=== PATIENT | male | born 1975 | race Caucasian/White ===

== ENCOUNTER 2016-09-06 02:27 | Emergency (ER) | payer BC ==
[2016-09-06] MEDS ORDERED: SODIUM CHLORIDE 0.9% 1000ML 1,000 ML ONE (02:48)
--- NOTE | 2016-09-06 02:50 | ED.PDOC ---
History of Present Illness - General Chief Complaint: Eye Problems Stated Complaint: left eye pain Time Seen by Provider: 09/06/16 02:48 Source: patient, RN notes reviewed, Vital Signs reviewed Exam Limitations: no limitations - History of Present Illness Initial Comments: Patient comes in with feeling like something is in his left eye. Reports his eye was fine when he went to bed last night but he woke up with severe pain and feeling like something is in there. 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 Timing/Duration: abrupt EENT Location: eye (L) Prearrival Treatment: no prearrival treatment Improving Factors: nothing Worsening Factors: nothing Associated Symptoms: denies symptoms Allergies/Adverse Reactions: Allergies Sulfa Antibiotics Allergy (Verified 09/06/16 02:40) Home Medications: Ambulatory Orders Acetamin W/Cod #3 Tab [Tylenol w/CODEINE #3] 1 - 2 ea PO Q4HR PRN #15 tab Review of Systems - Review of Systems Constitutional: States: no symptoms reported EENTM: States: see HPI, eye pain - left, tearing - left, other - +photophobia. Denies: blurred vision, double vision Respiratory: States: no symptoms reported Cardiology: States: no symptoms reported Gastrointestinal/Abdominal: States: no symptoms reported Neurological: States: no symptoms reported All other Systems: No Change from Baseline Past Medical History (General) - Patient Medical History Hx Seizures: No Hx Stroke: No Hx Dementia: No Hx Asthma: No Hx of COPD: No Hx Cardiac Disorders: No Hx Congestive Heart Failure: No Hx Pacemaker: No Hx Hypertension: No Hx Thyroid Disease: No Hx Diabetes: No Hx Gastroesophageal Reflux: No Hx Renal Disease: No Hx Cancer: No Hx of HIV: No Hx Hepatitis C: No Hx MRSA: No Surgical History: other - Vaccination History Hx Tetanus, Diphtheria Vaccination: - unknown Hx Influenza Vaccination: No Immunizations Up to Date: No - Social History Hx Tobacco Use: Yes Hx Chewing Tobacco Use: Yes Hx Alcohol Use: No Hx Substance Use: No Hx Substance Use Treatment: No Hx Depression: No Feels Threatened In Home Enviroment: No Feels Threatened In a Relationship: No Hx Physical Abuse: No Hx Emotional Abuse: No Hx Suspected Abuse: No Family Medical History - Family History Father Family History: Unknown Living Status: Unknown Physical Exam - Physical Exam General Appearance: Agitated, Alert, Restless, Well Developed, Well Groomed, Well Hydrated, Well Nourished Eye Exam: right normal, left other - Tearing with injected conjunctiva. Negative fluroscene exam. Relief with tetracaine. Nasal Exam: normal inspection Neck: normal inspection Cardiovascular/Respiratory: no respiratory distress Neurologic: alert, normal mood/affect, oriented x 3 Skin Exam: normal color, warm/dry Progress - Progress Progress: 09/06/16 02:52 No obvious foreign body or corneal abrasion on exam. Will place Morgans lens and flush eye with 500cc of NS. 09/06/16 03:24 Pain is improved but still present after flushing eye. Gentamycin ointment placed in eye and covered with eye patch. Will given Tyl #3 for pain. Recommended follow up with eye doctor - Dr. Neumann Departure - Departure Clinical Impression: Corneal burn Qualifiers: Encounter type: initial encounter Laterality: left Qualified Code(s): T26.12XA - Burn of cornea and conjunctival sac, left eye, initial encounter Time of Disposition: 03:26 Disposition: Discharge to Home or Self Care Condition: Good Departure Forms: ED Discharge - Pt. Copy, Patient Portal Self Enrollment Instructions: DI for Eye Flash Burn Diet: resume usual diet Activity: increase activity as tolerated Prescriptions: Acetamin W/Cod #3 Tab [Tylenol w/CODEINE #3] 1 - 2 ea PO Q4HR PRN #15 tab PRN Reason: Moderate To Severe Pain Home Medications: Ambulatory Orders Acetamin W/Cod #3 Tab [Tylenol w/CODEINE #3] 1 - 2 ea PO Q4HR PRN #15 tab Additional Instructions: Apply antibiotic ointment in eye 4X/day Follow up with Dr. Neumann @ [facility]
[2016-09-06 02:51] VITALS: TEMP 97.4; O2SAT 98
[2016-09-06] MEDS ORDERED: ACETAMINOPHEN W/COD #3 TAB 1 EA TAB PO ONE (03:23)
[2016-09-06 03:30] VITALS: BP 142/94
[2016-09-06] MEDS ORDERED: GENTAMICIN 0.3% OPHTH OINT 1 APPLIC OPHTH ONE (04:00)
[2016-09-06] MEDS ORDERED: TETRACAINE HCL 0.5% OPHTH SOL 1 DROP OPHTH ONE (04:00)
== END 2016-09-06 03:37 | disposition home or self-care (01) ==
LOC: ER 02:27
DX: T26.12XA Burn of cornea and conjunctival sac, left eye, initial encounter (principal); Z87.891 Personal history of nicotine dependence; Z88.2 Allergy status to sulfonamides; X58.XXXA Exposure to other specified factors, initial encounter

== ENCOUNTER 2017-08-18 05:07 | Emergency (ER) | payer BC ==
[2017-08-18] MEDS ORDERED: CHLORHEXIDINE GLUCONATE 4 % 15 ML UD TOP ONE (05:16)
[2017-08-18 05:35] VITALS: BP 144/108; TEMP 97.3; O2SAT 98
[2017-08-18] MEDS ORDERED: TETANUS,DIPHTHERIA,PERTUSSIS 1 EA SYG IM ONE (05:40)
--- NOTE | 2017-08-18 05:43 | ED.PDOC ---
History of Present Illness - General Chief Complaint: Bite: Animal/Insect/Human Stated Complaint: dog bite to left hand Time Seen by Provider: 08/18/17 05:40 Source: patient Exam Limitations: no limitations - History of Present Illness Initial Comments: Patient comes in for dog bite to his left hand. He was leaving the house and ran over his dad's dog. When he went to render aid the dog bit him several times. Animal control is currently with patient to get information. He has no other acute complaints and is otherwise healthy. Timing/Duration: momentarily Severity: moderate Improving Factors: nothing Worsening Factors: nothing Associated Symptoms: denies symptoms Allergies/Adverse Reactions: Allergies Sulfa Antibiotics Allergy (Verified 09/06/16 02:40) Home Medications: Ambulatory Orders Acetamin W/Cod #3 Tab [Tylenol w/CODEINE #3] 1 - 2 ea PO Q4HR PRN #15 tab Amoxicillin & Pot Clavulanate [Augmentin Tab] 875 mg PO BID #20 tab 08/18/17 Review of Systems - Review of Systems Constitutional: States: no symptoms reported. Denies: chills, fever EENTM: States: no symptoms reported Respiratory: States: no symptoms reported Cardiology: States: no symptoms reported Gastrointestinal/Abdominal: States: no symptoms reported Genitourinary: States: no symptoms reported Musculoskeletal: States: no symptoms reported Skin: States: see HPI Past Medical History (General) - Patient Medical History Hx Seizures: No Hx Stroke: No Hx Dementia: No Hx Asthma: No Hx of COPD: No Hx Cardiac Disorders: No Hx Congestive Heart Failure: No Hx Pacemaker: No Hx Hypertension: No Hx Thyroid Disease: No Hx Diabetes: No Hx Gastroesophageal Reflux: No Hx Renal Disease: No Hx Cancer: No Hx of HIV: No Hx Hepatitis C: No Hx MRSA: No Surgical History: other - Vaccination History Hx Tetanus, Diphtheria Vaccination: No Hx Influenza Vaccination: No Hx Pneumococcal Vaccination: No - Social History Hx Tobacco Use: Yes Hx Chewing Tobacco Use: Yes Hx Alcohol Use: No Hx Substance Use: No Hx Substance Use Treatment: No Hx Depression: No Hx Physical Abuse: No Hx Emotional Abuse: No Hx Suspected Abuse: No - Triage Comment ED Triage Comment: Note 7-8 dog bite puncture wounds to left hand, no bleeding. Placed hand in hibiclens soak. Family Medical History - Family History Father Family History: Unknown Living Status: Unknown Hx Family Asthma: Yes Hx Cardiac Disease: Yes Physical Exam - Physical Exam General Appearance: Alert, No apparent distress Eye Exam: bilateral normal Neck: non-tender Respiratory: chest non-tender, lungs clear, normal breath sounds Cardiovascular/Chest: normal peripheral pulses, regular rate, rhythm, no edema, no gallop, no JVD, no murmur Gastrointestinal/Abdominal: normal bowel sounds, non tender, soft Extremity: other Skin Exam: other - left hand with bite moreno 5 to back of hand each .4 cm and 3 to the palm. one at the thenar eminance has laceration to it of 1 cm with subcutaneous tissue showing Progress - Progress Progress: 08/18/17 06:02 Animal control at bedside. Dog was hit and dying during bite and had been healthy prior and was family pet. Patient has 8 total dog bites. 7 are puncture type wounds with bleeding controlled. Thenar eminence has one that has sustained a significant tear with 1 cm laceration and subcutaneous tissue coming through the wound. Patient was educated on increased risk of infection with suturing of bites and that we normally do not suture bites to the hand if it can be helped. However, the one laceration has significant gaping with subcutaneous fat coming through tear. This was repaired after soaking in betadine cleanse and cleaning. Tdap shot was given and patient started on Augmentin. Infection precautions discussed. 08/18/17 06:06 Procedures - Laceration/Wound Repair Left Hand Wound Length (cm): 1 Wound's Depth, Shape: into muscle Wound Explored: contaminated Irrigated w/ Saline (cc's): 25 Betadine Prep?: Yes Anesthesia: 1% Lidocaine Volume Anesthetic (cc's): 2 Wound Debrided: minimal Wound Repaired With: sutures Suture Size/Type: 3:0, nylon Number of Sutures: 1 Layer Closure?: No Departure - Departure Clinical Impression: Bite wound, Laceration Disposition: Discharge to Home or Self Care Condition: Fair Departure Forms: ED Discharge - Pt. Copy, Patient Portal Self Enrollment Instructions: DI for Animal Bites Diet: regular diet Prescriptions: Amoxicillin & Pot Clavulanate [Augmentin Tab] 875 mg PO BID #20 tab Home Medications: Ambulatory Orders Acetamin W/Cod #3 Tab [Tylenol w/CODEINE #3] 1 - 2 ea PO Q4HR PRN #15 tab Amoxicillin & Pot Clavulanate [Augmentin Tab] 875 mg PO BID #20 tab 08/18/17 Additional Instructions: clean areas BID with warm soapy water and cover with RENETTA and bandage. Call MD or return to ER for temp >100.5, swelling, redness, or calor. Patient should follow up in 3 days for wound checks with PCP and in 7 days for suture removal.
[2017-08-18] MEDS ORDERED: AMOXICILLIN & POT CLAVULANATE 875 MG TAB PO ONE (05:47)
[2017-08-18] MEDS ORDERED: NEOMYCIN-BACITRACIN-POLYMYXIN 0.9 GM UD TOP ONE (05:58)
== END 2017-08-18 06:15 | disposition home or self-care (01) ==
LOC: ER 05:07
DX: S61.452A Open bite of left hand, initial encounter (principal); Z23 Encounter for immunization; Z87.891 Personal history of nicotine dependence; W54.0XXA Bitten by dog, initial encounter; Y92.009 Unspecified place in unspecified non-institutional (private) residence as the place of occurrence of the external cause

== ENCOUNTER 2019-02-28 06:42 | Emergency (ER) | payer BC ==
[2019-02-28] MEDS ORDERED: ADENOSINE INJ 6 MG/2 ML SYG IV ONE (06:50)
[2019-02-28] MEDS ORDERED: ASPIRIN (CHEWABLE) 81 MG TAB ONE (06:53)
[2019-02-28] MEDS ORDERED: METOPROLOL SUCCINATE XL 50 MG TAB ONE (06:53)
[2019-02-28] MEDS ORDERED: ASPIRIN TABLET 325 MG TAB PO ONE (06:55)
[2019-02-28] MEDS ORDERED: METOPROLOL TARTRATE 50 MG TAB PO ONE (06:56)
[2019-02-28] MEDS ORDERED: SODIUM CHLORIDE 0.9% 1000ML 1,000 ML ONE (07:06)
[2019-02-28 07:09] VITALS: TEMP 97.4
[2019-02-28] MEDS ORDERED: SODIUM CHLORIDE 0.9% 1000ML 1,000 ML IVS ONE ×2 (07:10→07:31)
--- NOTE | 2019-02-28 07:26 | RAD ---
EXAM: Chest,1 View HISTORY: Shortness of breath, supraventricular tachycardia COMPARISON: None. TECHNIQUE: Chest one view portable AP upright FINDINGS: Heart size within normal limits. Central pulmonary vascular distention. Lungs clear with no evidence of mass, consolidation, or significant pulmonary edema. No significant pleural effusion or pneumothorax. Old healed fracture of left 5th-7thposterior rib fractures. IMPRESSION: Pulmonary venous hypertension or pulmonary vascular congestion. No radiographic evidence of cardiomegaly or pulmonary edema. Electronically signed by: Gerber Hinson MD 02/28/2019 7:25 AM [facility]
--- NOTE | 2019-02-28 08:32 | ED.PDOC ---
History of Present Illness - General Chief Complaint: Chest Pain/NE Stated Complaint: chest pain' Time Seen by Provider: 02/28/19 06:55 - History of Present Illness Allergies/Adverse Reactions: Allergies Sulfa Antibiotics Allergy (Verified 02/28/19 07:00) Home Medications: Ambulatory Orders NK 02/28/19 Past Medical History (General) - Patient Medical History Hx Seizures: No Hx Stroke: No Hx Dementia: No Hx Asthma: No Hx of COPD: No Hx Cardiac Disorders: No Hx Congestive Heart Failure: No Hx Pacemaker: No Hx Hypertension: Yes Hx Thyroid Disease: No Hx Diabetes: No Hx Gastroesophageal Reflux: No Hx Renal Disease: No Hx Cancer: No Hx of HIV: No Hx Hepatitis C: No Hx MRSA: No Surgical History: other - Vaccination History Hx Tetanus, Diphtheria Vaccination: No Hx Influenza Vaccination: No Hx Pneumococcal Vaccination: No - Social History Hx Tobacco Use: Yes Hx Chewing Tobacco Use: Yes Tins Per Day Chewed: 1 Hx Alcohol Use: No Hx Substance Use: No Hx Substance Use Treatment: No Hx Depression: No Hx Physical Abuse: No Hx Emotional Abuse: No Hx Suspected Abuse: No Family Medical History - Family History Father Family History: Unknown Living Status: Unknown Hx Family Asthma: Yes Hx Cardiac Disease: Yes Progress - Progress Progress: 02/28/19 07:24 Patient signed out to me by Dr. Wong. Pt. arrived in SVT EKG revealed rate of 238bpm pt. c/o chest pain and palpitations. With valsava maneuvers and PO metoprolol pt. now sinus tachycardia at 108bpmand feeling much improved. Will give fluids follow up labs fluids and admit, pt got aspirin. at bedside. 02/28/19 07:58 02/28/19 06:55 Telemetry .CONTINUOUS B-TYPE NATRIURETIC PEPTIDE/BNP Stat CARDIAC ENZYME GROUP Stat COMPLETE METABOLIC PROFILE Stat MAGNESIUM Stat THYROID STIMULATING HORMONE Stat D-DIMER,QUANTITATIVE Stat PARTIAL THROMBOPLASTIN TIME Stat PROTHROMBIN TIME Stat CBC (AUTOMATED) W/AUTO DIFF Stat Aspirin 325 mg PO ONCE ONE 02/28/19 06:56 Metoprolol Tartrate [Lopressor] 50 mg PO ONCE ONE 02/28/19 07:00 GLUCOSE, FINGER STICK Stat EKG STAT 02/28/19 07:10 B-TYPE NATRIURETIC PEPTIDE/BNP Stat CARDIAC PANEL,ER Stat HEPATIC FUNCTION PANEL Stat THYROID STIMULATING HORMONE Stat BOLUS Sodium Chloride 0.9% 1000ML [Ns 1000 ml] 1,000 ml IVS ONCE 02/28/19 07:15 EKG STAT 02/28/19 07:31 BOLUS Sodium Chloride 0.9% 1000ML [Ns 1000 ml] 1,000 ml IVS ONCE 02/28/19 09:00 Oxygen Daily Laboratory Results - last 24 hr 02/28/19 02/28/19 06:57 07:10 WBC 6.1 RBC 4.96 Hgb 16.1 Hct 45.8 MCV 92.4 MCH 32.4 H MCHC 35.1 RDW 12.3 Plt Count 170 MPV 8.0 Absolute Neuts (auto) 3.20 Absolute Lymphs (auto) 2.20 Absolute Monos (auto) 0.50 Absolute Eos (auto) 0.10 Absolute Basos (auto) 0.10 Neutrophils % 53.0 Lymphocytes % 35.8 Monocytes % 8.3 Eosinophils % 2.0 Basophils % 0.9 POC Glucose 112 H Globulin Cancelled Albumin/Globulin Ratio Cancelled 02/28/19 08:08 02/28/19 06:55 Telemetry .CONTINUOUS B-TYPE NATRIURETIC PEPTIDE/BNP Stat CARDIAC ENZYME GROUP Stat COMPLETE METABOLIC PROFILE Stat MAGNESIUM Stat THYROID STIMULATING HORMONE Stat D-DIMER,QUANTITATIVE Stat PARTIAL THROMBOPLASTIN TIME Stat PROTHROMBIN TIME Stat CBC (AUTOMATED) W/AUTO DIFF Stat Aspirin 325 mg PO ONCE ONE 02/28/19 06:56 Metoprolol Tartrate [Lopressor] 50 mg PO ONCE ONE 02/28/19 07:00 GLUCOSE, FINGER STICK Stat EKG STAT 02/28/19 07:10 B-TYPE NATRIURETIC PEPTIDE/BNP Stat CARDIAC PANEL,ER Stat HEPATIC FUNCTION PANEL Stat THYROID STIMULATING HORMONE Stat BOLUS Sodium Chloride 0.9% 1000ML [Ns 1000 ml] 1,000 ml IVS ONCE 02/28/19 07:15 EKG STAT 02/28/19 07:31 BOLUS Sodium Chloride 0.9% 1000ML [Ns 1000 ml] 1,000 ml IVS ONCE 02/28/19 08:00 Pulse Ox, Continuous Monitoring STAT 02/28/19 09:00 Oxygen Daily 03/01/19 08:00 Pulse Ox, Continuous Monitoring STAT 03/02/19 08:00 Pulse Ox, Continuous Monitoring STAT 03/03/19 08:00 Pulse Ox, Continuous Monitoring STAT Laboratory Results - last 24 hr 02/28/19 02/28/19 06:57 07:10 WBC 6.1 RBC 4.96 Hgb 16.1 Hct 45.8 MCV 92.4 MCH 32.4 H MCHC 35.1 RDW 12.3 Plt Count 170 MPV 8.0 Absolute Neuts (auto) 3.20 Absolute Lymphs (auto) 2.20 Absolute Monos (auto) 0.50 Absolute Eos (auto) 0.10 Absolute Basos (auto) 0.10 Neutrophils % 53.0 Lymphocytes % 35.8 Monocytes % 8.3 Eosinophils % 2.0 Basophils % 0.9 PT 9.8 INR 0.99 PTT (SP) 26.7 Sodium 137 Potassium 3.2 L Chloride 105 Carbon Dioxide 22 Anion Gap 13.2 BUN 23 H Creatinine 1.08 BUN/Creatinine Ratio 21.3 H POC Glucose 112 H Random Glucose 195 H Serum Osmolality 282.9 Calcium 9.2 Magnesium 2.0 Total Bilirubin 1.4 H Direct Bilirubin 0.2 Indirect Bilirubin 1.2 H AST 25 ALT 35 Alkaline Phosphatase 58 Creatine Kinase 125 CK-MB (CK-2) 2.6 CK-MB (CK-2) % Not Reportable Troponin I 0.02 B-Natriuretic Peptide 9.3 Serum Total Protein 7.3 Albumin 4.4 Globulin Cancelled Albumin/Globulin Ratio Cancelled Reporting MD: Gerber Hinson Drill Sergeant date: Dictation date: EXAM: Chest,1 View HISTORY: Shortness of breath, supraventricular tachycardia COMPARISON: None. TECHNIQUE: Chest one view portable AP upright FINDINGS: Heart size within normal limits. Central pulmonary vascular distention. Lungs clear with no evidence of mass, consolidation, or significant pulmonary edema. No significant pleural effusion or pneumothorax. Old healed fracture of left 5th-7thposterior rib fractures. IMPRESSION: Pulmonary venous hypertension or pulmonary vascular congestion. No radiographic evidence of cardiomegaly or pulmonary edema. 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 Razo who accepts transfer at 09:45am Spoke to patient and Family at bedside who agree with plan of transfer 02/28/19 09:41 Departure - Departure Clinical Impression: SVT (supraventricular tachycardia), Elevated troponin Chest pain Qualifiers: Chest pain type: unspecified Qualified Code(s): R07.9 - Chest pain, unspecified Time of Disposition: 09:48 Disposition: Transfer to Hospital Condition: Fair Departure Forms: ED Discharge - Pt. Copy, Patient Portal Self Enrollment Instructions: DI for Chest Pain Home Medications: Ambulatory Orders NK 02/28/19
[2019-02-28 10:30] VITALS: BP 128/82; O2SAT 99
== END 2019-02-28 10:30 | disposition short-term general hospital (02) ==
LOC: ER 06:42
DX: I47.1 Supraventricular tachycardia (principal); R07.9 Chest pain, unspecified; R79.89 Other specified abnormal findings of blood chemistry; I10 Essential (primary) hypertension; Z87.891 Personal history of nicotine dependence; Z88.2 Allergy status to sulfonamides
CPT/HCPCS: 36415; 36416; 71045; 80048; 80076; 80307; 81001; 82550; 82553; 82948; 83880; 84443; 84484; 85025; 85379; 85610; 85730; 93005; 93306; J7030